=== PATIENT | male | born 1975 | race Caucasian/White ===

== ENCOUNTER 2021-07-18 16:32 | Emergency (ER) | payer BC, SELFPAY ==
[2021-07-18 16:36] VITALS: BP 166/96; PULSE 94; RESP 16; TEMP 35.8; O2SAT 100
[2021-07-18] MEDS: LIDOCAINE HCL 1% LOCAL INJ 20 ML VIAL (16:58)
--- NOTE | 2021-07-18 17:15 | ED.WOUNDLAC ---
HPI - Wound/Laceration General Chief Complaint: Wound/Laceration Stated Complaint: right hand lac Time Seen by Provider: 07/18/21 16:42 History of Present Illness HPI narrative: 46-year-old male presents the emergency room for evaluation of a laceration to his left hand. Patient states that he was trimming trees with a chainsaw when it snapped back cutting the backside of his left hand. Patient states his tetanus is not up-to-date. Related Data Allergies Allergy/AdvReac Type Severity Reaction Status Date / Time cefaclor [From [facility]] Allergy Joint Pain Verified 07/18/21 16:33 Review of Systems Review of Systems: CONSTITUTIONAL: Denies fever, chills, or sweats. EYES: Denies visual changes, redness, or discharge. ENT: Denies rhinorrhea, congestion, sore throat, or otalgia. CARDIOVASCULAR: Denies chest pain, palpitations, or edema. RESPIRATORY: Denies cough or dyspnea. GASTROINTESTINAL: Denies abdominal pain, nausea, vomiting, or diarrhea. GENITOURINARY: Denies dysuria or hematuria. SKIN: Laceration to left hand MUSCULOSKELETAL: Denies back pain, joint pain, or myalgia. NEUROLOGIC: Denies headache, numbness, dizziness, or weakness. PSYCHIATRIC: Denies anxiety or depression. Exam Narrative: GENERAL: Well-appearing, well-nourished, and in no acute distress. HEAD: Normocephalic, atraumatic. EYES: PERRLA and EOMI. ENT: Nares clear, no rhinorrhea or epistaxis. Mucous membranes moist. Oropharynx without tonsillar hypertrophy exudate or other lesions. Bilateral TMs pearly erazo nonbulging NECK: Supple. No adenopathy or masses. No carotid bruits or JVD CHEST: Clear to auscultation. No respiratory distress. No wheezes rales or rhonchi HEART: Regular rate and rhythm. No murmur heard. Normal peripheral pulses. ABDOMEN: Soft, nontender, nondistended, normal active bowel sounds. EXTREMITIES: Normal range of motion. No edema. Left hand: Full range of motion of the thumb and second fingers. No joint laxity. Neurovascular is intact distally SKIN: Left hand: 4 cm linear laceration to the dorsum of the left hand. Bleeding controlled NEURO: No focal deficits. Alert and oriented x3. PSYCH: Normal mood and affect. Course Vital Signs Vital signs: Vital Signs Temperature 35.8 C L 07/18/21 16:36 Pulse Rate 94 07/18/21 16:36 Respiratory Rate 16 07/18/21 16:36 Blood Pressure 166/96 H 07/18/21 16:36 Pulse Oximetry 100 07/18/21 16:36 Oxygen Delivery Room Air 07/18/21 16:36 Temperature 35.8 C L 07/18/21 16:36 Pulse Rate 94 07/18/21 16:36 Respiratory Rate 16 07/18/21 16:36 Blood Pressure 166/96 H 07/18/21 16:36 Pulse Oximetry 100 07/18/21 16:36 Oxygen Delivery Room Air 07/18/21 16:36 Procedures Laceration Laceration 1: Date: 07/18/21 Time: 17:18 Site: other (left hand) Side (If applicable): left Size (cm): 4 Description: linear Depth: simple, single layer Local Anesthetic: lidocaine 1% Amount of anesthesia used (mL): 8 Pre-repair: irrigated ====== Skin Level ====== Skin layer closed with: nylon Number of sutures: 8 Technique: simple, interrupted ====== Subcutaneous Layer ====== ====== Muscle Layer ====== ====== Tendon Layer ====== Discharge Plan Discharge Clinical Impression: Laceration Patient Disposition: Home, Self-Care Condition: Stable Instructions: Antibiotic Form, Laceration (ED) Additional Instructions: Sutures come out in 10 to 14 days. Keep wound clean and dry. May wash with soap and water. Look for signs of infection which include: Redness, swelling, increased pain, purulent drainage. May take Tylenol and ibuprofen as needed for pain. Prescriptions: New sulfamethoxazole-trimethoprim [Bactrim DS] 800-160 mg tablet 1 tablet PO Q12H 7 Days Qty: 14 0RF Follow-up/Referrals: PHYSICIAN NOT ON STAFF,NONSTAFF [Non-Staff] - Time of Disposition:
[2021-07-18] MEDS: TETANUS,DIPHTHERIA,AC PERTUSSIS ADULT (0.5 ML) BOOSTRIX IM (17:20)
--- NOTE | 2021-07-18 17:31 | PC.NURSE ---
Neosporin, telfa, and coban applied to wound.
== END 2021-07-18 17:52 | disposition home or self-care (01) ==
PROVIDERS: Emergency Provider Nurse Practitioner Family; PCP Internal Medicine
DX: S61.412A Laceration without foreign body of left hand, initial encounter (principal); Z23 Encounter for immunization; W29.3XXA Contact with powered garden and outdoor hand tools and machinery, initial encounter
CPT/HCPCS: 12002; 90471; 90715; 99283